=== PATIENT | female | born 2000 | race American Indian/Alaskan Native ===

== ENCOUNTER 2021-12-08 14:10 | Emergency (ER) | payer OTHER ==
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
[2021-12-08] MEDS ORDERED: KETOROLAC 10 MG TAB PO ONE (20:20)
[2021-12-08] MEDS ORDERED: oxyCODONE /ACETAMINOPHEN 5-325MG TAB PO ONE (20:20)
[2021-12-08] MEDS ORDERED: CYCLOBENZAPRINE 10 MG TAB PO ONE (20:20)
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
[2021-12-08 22:11] VITALS: BP 122/70
== END 2021-12-08 22:11 | disposition home or self-care (01) ==
LOC: ED 14:10
DX: M54.2 Cervicalgia (principal); M54.50 Low back pain, unspecified; J45.909 Unspecified asthma, uncomplicated; V89.2XXA Person injured in unspecified motor-vehicle accident, traffic, initial encounter; Y93.89 Activity, other specified; Y92.89 Other specified places as the place of occurrence of the external cause; Y99.8 Other external cause status
CPT/HCPCS: 72040; 72100; 99283